=== PATIENT | female | born 1955 | race Caucasian/White ===

== ENCOUNTER 2018-08-20 10:32 | Emergency (ER) | payer MEDICAID ==
[~2018-08-20] VITALS: Ht 162.6 cm; Wt 65.0 kg
[~2018-08-20 10:32] MED LIST: ALBU18HF INH; AMLO10TA8 PO; AMOX1TAB12 PO; CEFD300C37 PO; CIPR500T87 PO; CITA10TA8 PO; DIPH25CA61 PO; DOXY100T PO; ENAL20TA68 PO; FENO145T30 PO; FOLI-17 PO; GABA-826 PO; HYDR-3240 PO; HYDR25TA6 PO; IBUP-1222 PO; LORA10TA72 PO; METH750T87 PO; METR500T PO; MULT-658 PO; NAPR-856 PO; NICO-486 TD; PRED20TA PO; SIMV20TA3 PO; SIMV5TAB PO; THIA100T10 PO; TRAZ50TA66 PO
--- NOTE | 2018-08-20 11:00 | NUR ---
PT REPORTS BLEEDING FROM VAGINA FOR ABOUT ONE MONTH, STATES "ITS LIKE IM ON MY PERIOD, IM HAVING CRAMPS" SHE REPORTS SHE HAS NOT HAD A PERIOD 15 YRS. SHE IS USING APPROX 1 PAD A DAY. PT DENIES CP,SOB, N/V/D. EKG DONE, PT ON NIBP, CONT PULSE OX.
[2018-08-20 11:30] LABS: MEAN CORPUSCULAR HEMOGLOBIN 37.1 pg (27.0-34.8); MEAN CORPUSCULAR HGB CONC 33.2 g/dL (32.4-35.8); MEAN CORPUSCULAR VOLUME 111.6 fL (80-100); MEAN PLATELET VOLUME 9.7 fL (7.4-10.4); PLATELET COUNT 223 x10^3/uL (130-400); RED BLOOD COUNT 4.28 x10^6/uL (3.82-5.3)
[2018-08-20 11:39] LABS: ALBUMIN 3.6 g/dL (3.4-5.0); ANION GAP 9 mmol/L (5-15); CALCIUM 9.5 mg/dL (8.5-10.1); CHLORIDE 110 mmol/L (98-107); CREATININE 0.98 mg/dL (0.55-1.02)
--- NOTE | 2018-08-20 11:58 | NUR ---
ORTHOSTATICS COMPLETED, PT DENIES NEEDS AT THIS TIME
[2018-08-20 12:01] VITALS: BP 146/91
--- NOTE | 2018-08-20 12:25 | NUR ---
IV est, IVF hung as per MD order.
[2018-08-20 12:29] LABS: BASOPHILS # (AUTO) 0.03 x10^3/uL (0-0.1); BASOPHILS % (AUTO) 0 % (0-1); EOSINOPHILS # (AUTO) 0.11 x10^3/uL (0-0.4); EOSINOPHILS % (AUTO) 2 % (1-7); LYMPHOCYTES # (AUTO) 1.75 x10^3/uL (1-3.4); LYMPHOCYTES % (AUTO) 25 % (22-44); MD SCAN; MONOCYTES # (AUTO) 0.44 x10^3/uL (0.2-0.8); MONOCYTES % (AUTO) 6 % (2-9); NEUTROPHILS # (AUTO) 4.84 x10^3/uL (1.8-6.8); NEUTROPHILS % (AUTO) 68 % (42-75)
[2018-08-20] MEDS ORDERED: SODIUM CHLORIDE 0.9% 1,000ML IVBOLUS ONE (13:00)
--- NOTE | 2018-08-20 13:01 | NUR ---
Patient given discharge instructions and they have confirmed that they understand the instructions. Patient ambulatory with steady gait.
== END 2018-08-20 13:05 | disposition home or self-care (01) ==
LOC: EDBD 10:32 → ED 12:59
DX: N93.8 Other specified abnormal uterine and vaginal bleeding (principal); I10 Essential (primary) hypertension; J43.9 Emphysema, unspecified; E78.00 Pure hypercholesterolemia, unspecified; F17.200 Nicotine dependence, unspecified, uncomplicated
CPT/HCPCS: 36415; 80048; 82040; 85025; 93005; 99284; J7030

== ENCOUNTER 2018-12-30 12:50 | Inpatient (IN) | payer MEDICAID ==
[~2018-12-30] VITALS: Ht 162.6 cm; Wt 69.8 kg
--- NOTE | 2018-12-30 13:15 | NUR ---
BIB [facility]. C/O SOB, substernal CP, ABD pain, nausea and VB. Patient reports SOB x 1 week, getting progressively worse. C/O substernal, non-radiating CP since this AM. Patient reports ABD pain and VB x roughly 4 months and otherwise states she has been postmenopausal "for years." Had pap smear and was told it was "normal" and instructed to get mammogram and transvaginal US, which she did not follow up on. She states, "I just got nervous about the tests and starting drinking again". 1ppd and 1 pt EtOH daily. Last drink was 48 hours ago. C/O anxiety, tremors, nausea, and auditory and visual hallucinations. Placed NIBP, pulse ox and engine monitor. Will continue to monitor.
[2018-12-30] MEDS ORDERED: SODIUM CHLORIDE FLUSH 10ML SYR IVF ONE (13:30)
[2018-12-30] MEDS ORDERED: LORazepam 2 MG/ML, 1ML IVPush ONE (13:30)
[2018-12-30] MEDS ORDERED: ALBUTEROL/IPRATROPIUM 2.5MG/0.5MG, 3 ML NPPB ONE (13:30)
[2018-12-30] MEDS ORDERED: LORazepam 2 MG/ML, 1ML ONE (13:49)
[2018-12-30 14:07] LABS: MEAN CORPUSCULAR HEMOGLOBIN 37.9 pg (27.0-34.8); MEAN CORPUSCULAR HGB CONC 33.3 g/dL (32.4-35.8); MEAN CORPUSCULAR VOLUME 113.7 fL (80-100); MEAN PLATELET VOLUME 7.8 fL (7.4-10.4); PLATELET COUNT 150 x10^3/uL (130-400); RED BLOOD COUNT 4.37 x10^6/uL (3.82-5.3)
--- NOTE | 2018-12-30 14:07 | NUR ---
Cath UA sent to lab. Medicated per eMAR. VSS.
[2018-12-30 14:17] LABS: ALANINE AMINOTRANSFERASE 25 U/L (12-78); ALBUMIN 3.6 g/dL (3.4-5.0); ANION GAP 11 mmol/L (5-15); CALCIUM 8.8 mg/dL (8.5-10.1); CHLORIDE 100 mmol/L (98-107)
[2018-12-30 14:21] LABS: ALKALINE PHOSPHATASE 90 U/L (45-117); BILIRUBIN,TOTAL 1.4 mg/dL (0.2-1.0); TOTAL PROTEIN 7.1 g/dL (6.4-8.2); TROPONIN I < 0.015 ng/mL (0.000-0.045)
--- NOTE | 2018-12-30 14:22 | NUR ---
TASK RN: PT SITTING UP IN CLEMENCIA GUPTA NOTED. RESPIRATIONS EVEN/UNLABORED. NO ACCESSORY MUSCLE USE NOTED; PT SPEAKING IN FULL SENTENCES WO DIFFICULTY. PT REPORTS IMPROVEMENT IN PAIN/SOB SP MEDICATIONS. VS WNL. PT UPDATED TO POC (RESULTS/RECHECK) AND DEMONSTRATES UNDERSTANDING.
[2018-12-30] MEDS ORDERED: ALBUTEROL/IPRATROPIUM 2.5MG/0.5MG, 3 ML ONE (14:24)
[2018-12-30] MEDS ORDERED: SODIUM CHLORIDE 0.9% 1,000 ML IV ONE (14:33)
--- NOTE | 2018-12-30 14:50 | NUR ---
TASK RN: REPORT TO ULYSSES TIJERINA ON FLOOR. PT PREPARED FOR TRANSPORT
[2018-12-30] MEDS ORDERED: THIAMINE 100MG TABLET PO ONE (15:00)
[2018-12-30] MEDS ORDERED: morphine SULFATE 10 MG/ML, 1ML IVPush PRN (15:00)
[2018-12-30] MEDS ORDERED: LORazepam 2 MG/ML, 1ML IV PRN ×3 (15:00)
[2018-12-30] MEDS ORDERED: SODIUM CHLORIDE FLUSH 10ML SYR IVF PRN (15:00)
[2018-12-30] MEDS ORDERED: LORazepam 1MG TABLET PO PRN ×2 (15:00)
[2018-12-30] MEDS ORDERED: ONDANSETRON ODT 4 MG PO PRN (15:00)
[2018-12-30] MEDS ORDERED: FOLIC ACID 5 MG/ML IM ONE (15:00)
[2018-12-30] MEDS ORDERED: PROMETHAZINE 25 MG/ML, 1ML IM PRN (15:00)
[2018-12-30] MEDS ORDERED: ONDANSETRON 2MG/ML, 2ML IVPush PRN (15:00)
[2018-12-30] MEDS ORDERED: LORazepam 0.5MG TABLET PO PRN (15:00)
[2018-12-30] MEDS ORDERED: hydrALAzine 20 MG/ML, 1ML IVPush PRN (15:00)
[2018-12-30 15:10] LABS: BASOPHILS # (AUTO) 0.04 x10^3/uL (0-0.1); BASOPHILS % (AUTO) 1 % (0-1); EOSINOPHILS # (AUTO) 0.06 x10^3/uL (0-0.4); EOSINOPHILS % (AUTO) 1 % (1-7); LYMPHOCYTES # (AUTO) 1.22 x10^3/uL (1-3.4); LYMPHOCYTES % (AUTO) 16 % (22-44); MONOCYTES # (AUTO) 0.24 x10^3/uL (0.2-0.8); MONOCYTES % (AUTO) 3 % (2-9); NEUTROPHILS # (AUTO) 6.13 x10^3/uL (1.8-6.8); NEUTROPHILS % (AUTO) 80 % (42-75)
[2018-12-30 15:11] LABS: MD SCAN
--- NOTE | 2018-12-30 15:20 | NUR ---
Patient to US.
--- NOTE | 2018-12-30 15:40 | NUR ---
BELGICA Andrews to transfer patient from US to floor.
--- NOTE | 2018-12-30 15:42 | NUR ---
DEHYDRATOR TENDER: SPOKE WITH US. US ABLE TO TRANSPORT PT TO FLOOR. ALL PT BELONGINGS TAKEN TO ULTRASOUND.
[2018-12-30] MEDS ORDERED: CHLORDIAZEPOXIDE 25 MG CAPSULE PO SCH (16:00)
[2018-12-30 16:14] VITALS: BP 141/95
[2018-12-30] MEDS ORDERED: ALBUTEROL/IPRATROPIUM 2.5MG/0.5MG, 3 ML NPPB PRN (16:30)
[2018-12-30] MEDS: NICOTINE 14MG/24 HR PATCH.TD24 TD SCH (18:28)
[2018-12-30] MEDS: PANTOPRAZOLE 40 MG IV IVPush SCH (18:28)
[2018-12-30 18:30] LABS: CULTURE INDICATED? YES; MICROSCOPIC INDICATED
[2018-12-30] MEDS ORDERED: FOLIC ACID 1 MG TABLET PO ONE (18:30)
[2018-12-30 19:28] VITALS: BP 113/74
[2018-12-30 19:44] LABS: TROPONIN I < 0.015 ng/mL (0.000-0.045)
[2018-12-30] MEDS: CHLORDIAZEPOXIDE 10 MG CAPSULE PO SCH (20:32)
[2018-12-31 01:10] VITALS: BP 124/85
[2018-12-31 05:39] LABS: MEAN CORPUSCULAR HEMOGLOBIN 38.2 pg (27.0-34.8); MEAN CORPUSCULAR HGB CONC 32.9 g/dL (32.4-35.8); MEAN CORPUSCULAR VOLUME 116.1 fL (80-100); MEAN PLATELET VOLUME 8.7 fL (7.4-10.4); PLATELET COUNT 140 x10^3/uL (130-400); RED BLOOD COUNT 3.69 x10^6/uL (3.82-5.3)
[2018-12-31 05:45] LABS: ANION GAP 8 mmol/L (5-15); CALCIUM 8.2 mg/dL (8.5-10.1); CHLORIDE 102 mmol/L (98-107)
[2018-12-31 05:46] LABS: ALBUMIN 3.1 g/dL (3.4-5.0)
[2018-12-31 05:51] LABS: ALKALINE PHOSPHATASE 75 U/L (45-117); TOTAL PROTEIN 6.2 g/dL (6.4-8.2); TROPONIN I < 0.015 ng/mL (0.000-0.045)
[2018-12-31 05:53] LABS: ALANINE AMINOTRANSFERASE 21 U/L (12-78)
[2018-12-31 06:19] LABS: BASOPHILS # (AUTO) 0.03 x10^3/uL (0-0.1); BASOPHILS % (AUTO) 1 % (0-1); EOSINOPHILS % (AUTO) 0 % (1-7); LYMPHOCYTES % (AUTO) 11 % (22-44); MD SCAN; MONOCYTES # (AUTO) 0.32 x10^3/uL (0.2-0.8); MONOCYTES % (AUTO) 5 % (2-9); NEUTROPHILS # (AUTO) 6.06 x10^3/uL (1.8-6.8); NEUTROPHILS % (AUTO) 84 % (42-75)
[2018-12-31 06:54] VITALS: BP 132/85
[2018-12-31] MEDS ORDERED: MAGNESIUM SULFATE 3 GM in SODIUM CHLORIDE 0.9% 100 ML IV ONE (08:00)
[2018-12-31] MEDS: POTASSIUM CHLORIDE 20 MEQ TAB.ER.PRT PO SCH ×2 (09:17→16:42)
[2018-12-31] MEDS: MULTIVITAMINS/MINERALS TABLET PO SCH (09:18)
[2018-12-31] MEDS: CHLORDIAZEPOXIDE 10 MG CAPSULE PO SCH ×3 (09:18→20:06)
[2018-12-31] MEDS: CEFDINIR 300 MG CAPSULE PO SCH ×2 (09:18→20:06)
[2018-12-31] MEDS: predniSONE 50MG TABLET PO SCH (09:18)
[2018-12-31] MEDS: THIAMINE 100MG TABLET PO SCH ×2 (09:18→20:06)
[2018-12-31] MEDS: PANTOPRAZOLE 40 MG IV IVPush SCH (09:19)
[2018-12-31] MEDS: GUAIFENESIN 200 MG TABLET PO SCH ×4 (09:19→20:06)
[2018-12-31] MEDS: ACETAMINOPHEN 325 MG TABLET PO PRN (11:46)
[2018-12-31 12:22] VITALS: BP 133/90
[2018-12-31] MEDS: NICOTINE 14MG/24 HR PATCH.TD24 TD SCH (16:42)
[2018-12-31 19:43] VITALS: BP 124/79
[2019-01-01 00:20] VITALS: BP 110/73
[2019-01-01] MEDS: PANTOPROZOLE 40MG TABLET PO SCH (05:17)
[2019-01-01] MEDS: GUAIFENESIN 200 MG TABLET PO SCH ×4 (05:17→20:01)
[2019-01-01 05:46] LABS: ALBUMIN 3.1 g/dL (3.4-5.0); ANION GAP 5 mmol/L (5-15); CALCIUM 8.8 mg/dL (8.5-10.1); CHLORIDE 105 mmol/L (98-107)
[2019-01-01 05:51] LABS: ALANINE AMINOTRANSFERASE 23 U/L (12-78); ALKALINE PHOSPHATASE 78 U/L (45-117); BILIRUBIN,TOTAL 0.5 mg/dL (0.2-1.0); CREATININE 1.16 mg/dL (0.55-1.02); TOTAL PROTEIN 6.3 g/dL (6.4-8.2)
[2019-01-01 06:58] VITALS: BP 117/71
[2019-01-01] MEDS: CEFDINIR 300 MG CAPSULE PO SCH ×2 (09:04→20:01)
[2019-01-01] MEDS: SODIUM CHLORIDE 0.9% 1,000 ML IV SCH ×2 (09:04→17:06)
[2019-01-01] MEDS: MULTIVITAMINS/MINERALS TABLET PO SCH (09:05)
[2019-01-01] MEDS: THIAMINE 100MG TABLET PO SCH ×2 (09:05→20:01)
[2019-01-01] MEDS: CHLORDIAZEPOXIDE 10 MG CAPSULE PO SCH (09:06)
[2019-01-01] MEDS: predniSONE 50MG TABLET PO SCH (09:09)
[2019-01-01] MEDS: ACETAMINOPHEN 325 MG TABLET PO PRN (10:35)
[2019-01-01 13:00] VITALS: BP 156/90
[2019-01-01] MEDS: NICOTINE 21 MG/24 HR PATCH.TD24 TD SCH (17:06)
[2019-01-01 19:00] VITALS: BP 150/90
[2019-01-01] MEDS: LORazepam 2 MG/ML, 1ML IV PRN ×2 (20:28→22:22)
[2019-01-02 00:15] VITALS: BP 160/96
[2019-01-02] MEDS: SODIUM CHLORIDE 0.9% 1,000 ML IV SCH ×3 (01:15→17:03)
[2019-01-02 05:08] LABS: ANION GAP 4 mmol/L (5-15); CALCIUM 8.5 mg/dL (8.5-10.1); CHLORIDE 111 mmol/L (98-107); MEAN CORPUSCULAR HEMOGLOBIN 37.9 pg (27.0-34.8); MEAN CORPUSCULAR HGB CONC 32.8 g/dL (32.4-35.8); MEAN CORPUSCULAR VOLUME 115.6 fL (80-100); MEAN PLATELET VOLUME 8.8 fL (7.4-10.4); PLATELET COUNT 114 x10^3/uL (130-400); RED BLOOD COUNT 3.31 x10^6/uL (3.82-5.3); RED CELL DISTRIBUTION WIDTH 21.1 % (9.6-15.2)
[2019-01-02] MEDS: GUAIFENESIN 200 MG TABLET PO SCH ×4 (05:10→19:49)
[2019-01-02] MEDS: PANTOPROZOLE 40MG TABLET PO SCH (05:10)
[2019-01-02 05:14] LABS: ALANINE AMINOTRANSFERASE 25 U/L (12-78); ALBUMIN 2.9 g/dL (3.4-5.0); ALKALINE PHOSPHATASE 84 U/L (45-117); BILIRUBIN,TOTAL 0.3 mg/dL (0.2-1.0); CREATININE 1.26 mg/dL (0.55-1.02); TOTAL PROTEIN 5.8 g/dL (6.4-8.2)
[2019-01-02] MEDS: LORazepam 2 MG/ML, 1ML IV PRN ×2 (05:20→23:50)
[2019-01-02 05:53] LABS: BASOPHILS # (AUTO) 0.01 x10^3/uL (0-0.1); BASOPHILS % (AUTO) 0 % (0-1); EOSINOPHILS % (AUTO) 0 % (1-7); LYMPHOCYTES # (AUTO) 0.88 x10^3/uL (1-3.4); LYMPHOCYTES % (AUTO) 9 % (22-44); MD SCAN; MONOCYTES % (AUTO) 6 % (2-9); NEUTROPHILS # (AUTO) 7.97 x10^3/uL (1.8-6.8); NEUTROPHILS % (AUTO) 84 % (42-75)
[2019-01-02 08:00] VITALS: BP 178/114
[2019-01-02] MEDS: AMLODIPINE 5 MG TABLET PO SCH ×2 (08:33→19:49)
[2019-01-02] MEDS: THIAMINE 100MG TABLET PO SCH ×2 (08:33→19:49)
[2019-01-02] MEDS: MULTIVITAMINS/MINERALS TABLET PO SCH (08:33)
[2019-01-02] MEDS: CEFDINIR 300 MG CAPSULE PO SCH ×2 (08:33→19:49)
[2019-01-02 09:34] VITALS: BP 161/97
[2019-01-02] MEDS: ACETAMINOPHEN 325 MG TABLET PO PRN ×2 (12:02→20:51)
[2019-01-02 13:48] VITALS: BP 162/95
[2019-01-02] MEDS: NICOTINE 21 MG/24 HR PATCH.TD24 TD SCH (17:01)
[2019-01-02 19:24] VITALS: BP 151/89
[2019-01-03] MEDS: QUETIAPINE 100MG TABLET PO SCH ×2 (01:19→22:26)
[2019-01-03 02:02] VITALS: BP 158/92
[2019-01-03] MEDS: SODIUM CHLORIDE 0.9% 1,000 ML IV SCH (02:41)
[2019-01-03] MEDS: PANTOPROZOLE 40MG TABLET PO SCH (05:15)
[2019-01-03] MEDS: GUAIFENESIN 200 MG TABLET PO SCH ×4 (05:15→22:26)
[2019-01-03 05:24] LABS: CHLORIDE 112 mmol/L (98-107)
[2019-01-03 05:30] LABS: ALANINE AMINOTRANSFERASE 30 U/L (12-78); ALBUMIN 2.8 g/dL (3.4-5.0); ALKALINE PHOSPHATASE 61 U/L (45-117); ANION GAP 3 mmol/L (5-15); BILIRUBIN,TOTAL 0.3 mg/dL (0.2-1.0); CALCIUM 8.7 mg/dL (8.5-10.1); CREATININE 0.98 mg/dL (0.55-1.02); TOTAL PROTEIN 5.6 g/dL (6.4-8.2)
[2019-01-03 07:21] VITALS: BP 175/122
[2019-01-03] MEDS ORDERED: SODIUM CHLORIDE 0.9% 1,000 ML IV SCH (07:30)
[2019-01-03] MEDS: AMLODIPINE 5 MG TABLET PO SCH ×2 (07:33→22:27)
[2019-01-03] MEDS: MULTIVITAMINS/MINERALS TABLET PO SCH (07:33)
[2019-01-03] MEDS: CEFDINIR 300 MG CAPSULE PO SCH ×2 (07:33→22:26)
[2019-01-03] MEDS: QUETIAPINE 25MG TABLET PO SCH ×2 (07:33→11:07)
[2019-01-03] MEDS: THIAMINE 100MG TABLET PO SCH ×2 (07:33→22:27)
[2019-01-03 09:35] VITALS: BP 167/89
[2019-01-03 14:45] VITALS: BP 137/89
[2019-01-03] MEDS: NICOTINE 21 MG/24 HR PATCH.TD24 TD SCH (15:57)
[2019-01-03 19:21] VITALS: BP 145/91
[2019-01-04 00:47] VITALS: BP 126/82
[2019-01-04] MEDS: PANTOPROZOLE 40MG TABLET PO SCH (05:09)
[2019-01-04] MEDS: GUAIFENESIN 200 MG TABLET PO SCH ×2 (05:09→10:15)
[2019-01-04 05:25] LABS: ALBUMIN 2.6 g/dL (3.4-5.0); ANION GAP 4 mmol/L (5-15); CALCIUM 8.9 mg/dL (8.5-10.1); CHLORIDE 113 mmol/L (98-107)
[2019-01-04 05:28] LABS: ALANINE AMINOTRANSFERASE 34 U/L (12-78); ALKALINE PHOSPHATASE 59 U/L (45-117); BILIRUBIN,TOTAL 0.3 mg/dL (0.2-1.0); CREATININE 1.07 mg/dL (0.55-1.02); TOTAL PROTEIN 5.5 g/dL (6.4-8.2)
[2019-01-04 07:20] VITALS: BP 145/89
[2019-01-04] MEDS ORDERED: POLYETHYLENE GLYCOL 17 GM PACKET PO PRN (09:30)
[2019-01-04] MEDS ORDERED: MAGNESIUM CITRATE 300ML ORAL SOL PO ONE (09:30)
[2019-01-04] MEDS: CEFDINIR 300 MG CAPSULE PO SCH (10:16)
[2019-01-04] MEDS: QUETIAPINE 25MG TABLET PO SCH ×2 (10:17→13:04)
[2019-01-04] MEDS: AMLODIPINE 5 MG TABLET PO SCH (10:17)
[2019-01-04] MEDS: THIAMINE 100MG TABLET PO SCH (10:18)
[2019-01-04] MEDS: MULTIVITAMINS/MINERALS TABLET PO SCH (10:18)
[2019-01-04] MEDS: ACETAMINOPHEN 325 MG TABLET PO PRN (11:22)
[2019-01-04 13:57] VITALS: BP 125/80
[2019-01-04] MEDS ORDERED: THIA100T67 PO (14:35)
[2019-01-04] MEDS ORDERED: TIOT18CA INH (14:35)
[2019-01-04] MEDS ORDERED: AMLO-150 PO (14:35)
[2019-01-04] MEDS ORDERED: ALBU90AE INH (14:35)
[2019-01-04] MEDS ORDERED: PRED20TA PO (14:35)
[2019-01-04] MEDS ORDERED: QUET100T PO (14:35)
[2019-01-04] MEDS ORDERED: PANT40TA5 PO (14:35)
[2019-01-04] MEDS ORDERED: GUAI200T37 PO (14:35)
[2019-01-04] MEDS ORDERED: CEFD300C37 PO (14:35)
[2019-01-04] MEDS ORDERED: QUET25TA7 PO (14:35)
== END 2019-01-04 16:57 | DRG 189 ==
LOC: ED 14:32 → EDIP 14:33 → ED 14:41 → 4EST 16:08
PROVIDERS: ADMIT Internal Medicine; ATTEND Internal Medicine
DX: J96.01 Acute respiratory failure with hypoxia (principal); N17.9 Acute kidney failure, unspecified; F10.231 Alcohol dependence with withdrawal delirium; N39.0 Urinary tract infection, site not specified; B96.20 Unspecified Escherichia coli [E. coli] as the cause of diseases classified elsewhere; D75.1 Secondary polycythemia; E78.5 Hyperlipidemia, unspecified; E83.42 Hypomagnesemia; E87.6 Hypokalemia; F17.210 Nicotine dependence, cigarettes, uncomplicated; F19.959 Other psychoactive substance use, unspecified with psychoactive substance-induced psychotic disorder, unspecified; F41.0 Panic disorder [episodic paroxysmal anxiety]; G89.29 Other chronic pain; J43.9 Emphysema, unspecified; K70.10 Alcoholic hepatitis without ascites; R31.29 Other microscopic hematuria; R93.89 Abnormal findings on diagnostic imaging of other specified body structures; N93.9 Abnormal uterine and vaginal bleeding, unspecified; I10 Essential (primary) hypertension; Z79.4 Long term (current) use of insulin; Z91.5 Personal history of self-harm; M54.2 Cervicalgia; M54.9 Dorsalgia, unspecified
CPT/HCPCS: 36415; 96374; 99285; J7620; 71045; 76856; 80053; 80307; 81001; 82140; 83690; 83735; 83880; 84100; 84484; 85014; 85018; 85025; 87077; 87086; 87186; 93005; 93306; 94640; G0378; J3475; C9113; J0360; J2060; J7030; J7512

== ENCOUNTER 2019-04-04 08:53 | Emergency (ER) | payer MEDICAID, MEDICARE ==
[~2019-04-04] VITALS: Ht 162.6 cm; Wt 70.0 kg
[~2019-04-04 08:53] MED LIST changes: +ALBU90AE INH; +AMLO-150 PO; +FENO145T19 PO; -FENO145T30 PO; +GUAI200T37 PO; +PANT40TA5 PO; +QUET100T PO; +QUET25TA7 PO; +SIMV20TA19 PO; -SIMV20TA3 PO; +THIA100T67 PO; +TIOT18CA INH
[2019-04-04 09:57] LABS: BASOPHILS # (AUTO) 0.03 x10^3/uL (0-0.1); BASOPHILS % (AUTO) 1 % (0-1); EOSINOPHILS # (AUTO) 0.11 x10^3/uL (0-0.4); EOSINOPHILS % (AUTO) 2 % (1-7); LYMPHOCYTES # (AUTO) 1.39 x10^3/uL (1-3.4); LYMPHOCYTES % (AUTO) 24 % (22-44); MD NO; MEAN CORPUSCULAR HEMOGLOBIN 32.2 pg (27.0-34.8); MEAN CORPUSCULAR HGB CONC 32.1 g/dL (32.4-35.8); MEAN CORPUSCULAR VOLUME 100.3 fL (80-100); MEAN PLATELET VOLUME 8.9 fL (7.4-10.4); MONOCYTES # (AUTO) 0.58 x10^3/uL (0.2-0.8); MONOCYTES % (AUTO) 10 % (2-9); NEUTROPHILS # (AUTO) 3.75 x10^3/uL (1.8-6.8); NEUTROPHILS % (AUTO) 64 % (42-75); PLATELET COUNT 254 x10^3/uL (130-400); RED CELL DISTRIBUTION WIDTH 16.1 % (9.6-15.2)
[2019-04-04 10:09] LABS: ALBUMIN 3.6 g/dL (3.4-5.0); ANION GAP 7 mmol/L (5-15); CALCIUM 9.3 mg/dL (8.5-10.1); CHLORIDE 109 mmol/L (98-107)
[2019-04-04 10:12] LABS: ALANINE AMINOTRANSFERASE 19 U/L (12-78); ALKALINE PHOSPHATASE 72 U/L (45-117); BILIRUBIN,TOTAL 0.2 mg/dL (0.2-1.0); TOTAL PROTEIN 7.7 g/dL (6.4-8.2)
--- NOTE | 2019-04-04 10:33 | NUR ---
TO ROOM FROM LOBBY. NAD.
--- NOTE | 2019-04-04 10:36 | NUR ---
US, X-RAY, AND LABS COMPLETE AT THIS TIME; AWAITING PROVIDER EVAL, FURTHER ORDERS.
--- NOTE | 2019-04-04 10:49 | NUR ---
PT. REPORTS BILAT LEG PAIN/CRAMPING. STATES "THIS ALWAYS HAPPENES AND YOU GUYS DON'T DO ANYTING FOR ME EXCEPT SEND ME OUT OF HERE WITH PAIN PILLS, THEN SOON THOSE ARE GONE I END UP BACK IN HERE." PT. AMBULATING AROUND ROOM WHEN THIS RN ENTERED. PT. AND FRIEND AT EXPRESSING FRUSTRATION OVER "NOT HAVING ANSWERS". AWAITNIG PROVIDER JAY.
--- NOTE | 2019-04-04 11:04 | NUR ---
MED STUDENT AT BS FOR EVAL AT THIS TIME.
[2019-04-04] MEDS ORDERED: SODIUM CHLORIDE 0.9% 1,000ML IVBOLUS ONE (11:30)
--- NOTE | 2019-04-04 11:51 | NUR ---
IV ESTABLISHED, FLUIDS INFUSING. TO X-RAY VIA GURNEY.
--- NOTE | 2019-04-04 12:53 | NUR ---
VS UPDATED. PT. REPORTS SHE HAS NOT TAKEN ANY MEDICATIONS IN 3 YEARS. IVF CONTINUE TO INFUSE PER ORDER. CHART UP FOR RECHECK BY MOISES.
[2019-04-04] MEDS ORDERED: GABAPENTIN 300 MG CAPSULE ONE (13:09)
[2019-04-04] MEDS ORDERED: GABAPENTIN 300 MG CAPSULE PO ONE (13:30)
[2019-04-04 14:12] VITALS: BP 188/98
== END 2019-04-04 14:26 | disposition home or self-care (01) ==
LOC: ED 12:22
DX: M54.30 Sciatica, unspecified side (principal); M51.36 Other intervertebral disc degeneration, lumbar region; M43.17 Spondylolisthesis, lumbosacral region; R06.9 Unspecified abnormalities of breathing; Z87.891 Personal history of nicotine dependence
CPT/HCPCS: 36415; 71045; 72110; 80053; 85025; 93970; 99285; J7030; 96360; 96361